=== PATIENT | female | born 1950 | race Caucasian/White ===

== ENCOUNTER → 2016-05-12 | Outpatient (CLI) | payer MEDICARE, OTHER ==
[2016-05-12 14:51] VITALS: BP 91/61; PULSE 77; RESP 14; TEMP 97.7; BMI 23.3
--- NOTE | 2016-05-12 16:12 | P.HPBAR ---
Bariatric H&P - History & Physicial H&P Date: 05/12/16 History & Physicial: Visit/CC: band fill Patient initial contact: Initial weight: 111.13 kg Initial weight in pounds: 245.00 Height: 5 ft 4 in Initial BMI: 42.0 Last weight: Current weight: 61.689 kg Current weight in pounds: 136.00 Current BMI: 23.3 [place] body weight (based on NIH guidelines): 54.431 kg Excess body weight loss: 87.1% The patient is a 66 year-old F who presents for Bariatric Assessment. The patient has hunger. She is requesting a fill. Past Medical History Past Medical History: No Reported History History of Any Multi-Drug Resistant Organisms: None Reported Past Surgical History: Bariatric Surgery Additional Past Surgical History / Comment(s): gastric band surgery Past Anesthesia/Blood Transfusion Reactions: No Reported Reaction Past Psychological History: No Psychological Hx Reported Smoking Status: Unknown if ever smoked Past Alcohol Use History: None Reported Past Drug Use History: None Reported Surgical - Exam Vital Signs Temp Pulse Resp BP 97.7 F 77 14 91/61 05/12/16 14:42 05/12/16 14:42 05/12/16 14:42 05/12/16 14:42 - General well developed, no distress - Eyes PERRL - ENT normal pinna - Abdomen Abdomen: soft, non tender Bariatric Assessment & Plan Plan: The patient LAP-BAND was adjusted. She had 1 mL added to her LAP-BAND. She currently has 1 mL in the band. She'll follow-up in one week. Bariatric Checklist Checklist: Plan: Checklist: EGD: 1. Hiatal hernia: 2. H. Pylori: HgbA1c: Vitamin D: Smoking: Unknown if ever smoked Primary care physician referral: Psychiatry clearance: Cardiology clearance: Sleep study: Diet journal: VTE risk score: VTE risk level: Rehab needs at discharge:
== END | disposition home or self-care (01) ==
LOC: BARWHC3 13:57
PROVIDERS: ATTEND Surgery
DX: Z48.815 Encounter for surgical aftercare following surgery on the digestive system (principal); Z68.23 Body mass index [BMI] 23.0-23.9, adult; Z98.84 Bariatric surgery status
CPT/HCPCS: 99212

== ENCOUNTER → 2016-08-04 | Outpatient (CLI) | payer MEDICARE, OTHER ==
[2016-08-04 15:32] VITALS: BP 116/61; PULSE 80; RESP 16; TEMP 98; BMI 23.5
--- NOTE | 2016-08-04 16:03 | P.HPBAR ---
Bariatric H&P - History & Physicial H&P Date: 08/04/16 History & Physicial: Visit/CC: Band Adj Patient initial contact: Initial weight: 111.13 kg Initial weight in pounds: 245.00 Height: 5 ft 4 in Initial BMI: 42.0 Last weight: Current weight: 62.142 kg Current weight in pounds: 137.00 Current BMI: 23.5 [place] body weight (based on NIH guidelines): 54.431 kg Excess body weight loss: 86.3% The patient is a 66 year-old F who presents for Bariatric Assessment. The patient is requesting a fill of her LAP-BAND. She currently feels hungry. Past Medical History Past Medical History: No Reported History History of Any Multi-Drug Resistant Organisms: None Reported Past Surgical History: Bariatric Surgery Additional Past Surgical History / Comment(s): gastric band surgery Past Anesthesia/Blood Transfusion Reactions: No Reported Reaction Past Psychological History: No Psychological Hx Reported Smoking Status: Unknown if ever smoked Past Alcohol Use History: None Reported Past Drug Use History: None Reported Surgical - Exam Vital Signs Temp Pulse Resp BP 98.0 F 80 16 116/61 08/04/16 15:29 08/04/16 15:29 08/04/16 15:29 08/04/16 15:29 - General well developed, no distress - Eyes PERRL - ENT normal pinna - Neck no masses - Respiratory normal expansion - Cardiovascular Rhythm: regular - Abdomen Abdomen: soft, non tender Bariatric Assessment & Plan Plan: The patient LAP-BAND adjustment. She had 0.2 mL added to her band. She currently has 1.2 mL in the band. She'll follow-up in 2 months. Bariatric Checklist Checklist: Plan: Checklist: EGD: 1. Hiatal hernia: 2. H. Pylori: HgbA1c: Vitamin D: Smoking: Unknown if ever smoked Primary care physician referral: Psychiatry clearance: Cardiology clearance: Sleep study: Diet journal: VTE risk score: VTE risk level: Rehab needs at discharge:
== END | disposition home or self-care (01) ==
LOC: BARWHC3 14:26
PROVIDERS: ATTEND Surgery
DX: Z48.815 Encounter for surgical aftercare following surgery on the digestive system (principal); Z98.84 Bariatric surgery status; Z68.23 Body mass index [BMI] 23.0-23.9, adult
CPT/HCPCS: 99212

== ENCOUNTER → 2018-03-15 | Outpatient (CLI) | payer MEDICARE, OTHER ==
[2018-03-15 15:01] VITALS: BP 94/60; PULSE 91; TEMP 98; BMI 16.5
== END | disposition home or self-care (01) ==
LOC: BARWHC3 13:50
PROVIDERS: ATTEND Surgery
DX: Z46.51 Encounter for fitting and adjustment of gastric lap band (principal)
CPT/HCPCS: 99212

== ENCOUNTER → 2018-03-15 | Outpatient (CLI) | payer MEDICARE, OTHER ==
--- NOTE | 2018-03-15 16:36 | FL ---
EXAMINATION TYPE: FL barium swallow DATE OF EXAM: 03/15/2018 COMPARISON: None HISTORY: Nausea vomiting TECHNIQUE: A single contrast UGI study is performed. Isovue 370 is utilized. FINDINGS: LAP-BAND has a normal orientation. Note is made of a filter present. Multiple surgical skin rhina a re in the midline. Real-time observation is performed with swallowing. Attention is paid to the distal esophagus. The di stal esophagus is patulous. This narrows at the gastroesophageal junction to a more normal caliber. C ontrast passes through the lap band with an apparent normal caliber. There is however moderate hesita ncy passing through the level of the lap band. Patient did not experience any symptoms of nausea whil e performing the examination. Single overhead radiograph was obtained. Contrast within the jejunum. C ontrast within the stomach is not identified. Has this patient had a Marcus-en-Y surgery? Fluoroscopy time: 49 seconds Images: 13 IMPRESSIONS: 1. Normal LAP band position. 2. Moderate hesitancy passing through the lap band.
--- NOTE | 2018-03-15 16:42 | P.HPBAR ---
Bariatric H&P - History & Physicial H&P Date: 03/15/18 History & Physicial: Visit/CC: Patient initial contact: Initial weight: 111.13 kg Initial weight in pounds: Height: Initial BMI: Last weight: Current weight: Current weight in pounds: Current BMI: [place] body weight (based on NIH guidelines): Excess body weight loss: 96 The patient is a 68 year-old F who presents for Bariatric Assessment. Patient was diagnosed with cervical cancer. The patient looks cachectic. She has lost 40 pounds since her last visit. Past Medical History Past Medical History: No Reported History History of Any Multi-Drug Resistant Organisms: None Reported Past Surgical History: Bariatric Surgery Additional Past Surgical History / Comment(s): gastric band surgery Past Anesthesia/Blood Transfusion Reactions: No Reported Reaction Smoking Status: Unknown if ever smoked Surgical - Exam - General well developed, no distress - Eyes PERRL - ENT normal pinna - Neck no masses - Respiratory normal expansion - Cardiovascular Rhythm: regular - Abdomen Abdomen: soft, non tender Bariatric Assessment & Plan Plan: The patient LAP-BAND was emptied. 1.8 mL remove her band. Patient follow-up with her oncologist. I discussed with her the importance of weight gain. Bariatric Checklist Checklist: Plan: Checklist: EGD: 1. Hiatal hernia: 2. H. Pylori: HgbA1c: Vitamin D: Smoking: Unknown if ever smoked Primary care physician referral: Gael Velazco ([place]) Psychiatry clearance: Cardiology clearance: Sleep study: Diet journal: VTE risk score: VTE risk level: Rehab needs at discharge:
== END | disposition home or self-care (01) ==
LOC: RADXRMAIN 15:32
PROVIDERS: ATTEND Surgery
DX: R13.10 Dysphagia, unspecified (principal); R11.10 Vomiting, unspecified; Z88.0 Allergy status to penicillin
CPT/HCPCS: 74220; Q9967

== ENCOUNTER → 2018-07-26 | Outpatient (CLI) | payer MEDICARE, OTHER ==
[2018-07-26 14:29] VITALS: BP 116/71; PULSE 76; TEMP 98.1; BMI 19.9
--- NOTE | 2018-07-30 11:44 | P.HPBAR ---
Bariatric H&P - History & Physicial H&P Date: 07/26/18 History & Physicial: Visit/CC: lap band follow up Patient initial contact: Initial weight: 111.13 kg Initial weight in pounds: 245.00 Height: 5 ft 4 in Initial BMI: 42.0 Last weight: Current weight: 52.617 kg Current weight in pounds: 116.00 Current BMI: 19.9 [place] body weight (based on NIH guidelines): 54.431 kg Excess body weight loss: 103.2% The patient is a 68 year-old F who presents for Bariatric Assessment. Patient's complaints of abdominal pain. She has a recent diagnosis of ovarian cancer. Patient has developed a mass on the right side abdominal wall. Past Medical History Past Medical History: No Reported History, Cancer Additional Past Medical History / Comment(s): cervical cancer History of Any Multi-Drug Resistant Organisms: None Reported Past Surgical History: Bariatric Surgery Additional Past Surgical History / Comment(s): gastric band surgery Past Anesthesia/Blood Transfusion Reactions: No Reported Reaction Past Psychological History: No Psychological Hx Reported Smoking Status: Unknown if ever smoked Past Alcohol Use History: None Reported Past Drug Use History: None Reported Surgical - Exam Vital Signs Temp Pulse BP 98.1 F 76 116/71 07/26/18 14:25 07/26/18 14:25 07/26/18 14:25 - General moderate distress, cachectic, chronically ill - Abdomen John esophagus. The patient's LAP-BAND port is on the left side of her previous midline incision. There is a 10 cm mass located on the right side of her abdominal wall. The mass is firm and tender. Bariatric Assessment & Plan Plan: Questionable metastatic abdominal wall mass. Patient is scheduled see her oncologist this week. Patient's port site is within normal limits. She will follow-up with her oncologist and undergo CT PET scan. Bariatric Checklist Checklist: Plan: Checklist: EGD: 1. Hiatal hernia: 2. H. Pylori: HgbA1c: Vitamin D: Smoking: Unknown if ever smoked Primary care physician referral: Gael Velazco ([place]) Psychiatry clearance: Cardiology clearance: Sleep study: Diet journal: VTE risk score: VTE risk level: Rehab needs at discharge:
== END ==
LOC: BARWHC3 13:25
PROVIDERS: ATTEND Surgery
DX: R10.9 Unspecified abdominal pain (principal); R19.09 Other intra-abdominal and pelvic swelling, mass and lump; C56.9 Malignant neoplasm of unspecified ovary; Z85.41 Personal history of malignant neoplasm of cervix uteri; Z98.84 Bariatric surgery status
CPT/HCPCS: 99211